=== PATIENT | male | born 1965 | race Caucasian/White ===

== ENCOUNTER 2016-11-01 17:21 | Emergency (ER) | payer BC ==
[2016-11-01 17:28] VITALS: BP 126/64
--- NOTE | 2016-11-01 18:50 | RAD ---
INDICATION: Right shoulder pain COMPARISON: None TECHNIQUE: AP, lateral, and oblique views were obtained. Positioning is limited due to the patient's clinical condition FINDINGS: There is no acute fracture. There is AC joint separation. This is at least a type III separation. The glenohumeral joint appears intact. Soft tissues are normal. IMPRESSION: AC JOINT SEPARATION.
--- NOTE | 2016-11-01 18:50 | RAD ---
INDICATION: AC joint separation. COMPARISON: Right shoulder same date TECHNIQUE: AP views of the clavicle were obtained. FINDINGS: There is no acute clavicular fracture. There is AC joint separation. For to separate shoulder report. IMPRESSION: AC JOINT SEPARATION.
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
[2016-11-01] MEDS ORDERED: traMADol TAB* 50 MG PO ONE (19:19)
[2016-11-01] MEDS ORDERED: Ibuprofen TAB* 600 MG PO ONE (19:19)
== END 2016-11-01 19:40 | disposition home or self-care (01) ==
LOC: ED 17:21
DX: S43.101A Unspecified dislocation of right acromioclavicular joint, initial encounter (principal); M25.511 Pain in right shoulder; V19.9XXA Pedal cyclist (driver) (passenger) injured in unspecified traffic accident, initial encounter; Y93.9 Activity, unspecified; Y92.9 Unspecified place or not applicable; Y99.9 Unspecified external cause status
CPT/HCPCS: 99282; A9270-GY